=== PATIENT | female | born 1950 | race Caucasian/White ===

== ENCOUNTER 2022-02-15 10:29 | Outpatient (REF) | payer BC, SELFPAY ==
--- NOTE | ~2022-02-15 | MM_ITS ---
EXAMINATION: MM SCREENING DIGITAL BREAST TOMOSYNTHESIS, BILATERAL CLINICAL INFORMATION: Screening. Asymptomatic. The lifetime risk of breast cancer based on the Tyrer-Cuzick Model is 7%. COMPARISON: Mammography: 07/13/2020, 06/18/2018, 11/21/2017, 11/14/2017 TECHNIQUE: Digital breast tomosynthesis is performed in both the craniocaudal and mediolateral oblique views along with computer-aided detection (CAD). Synthesized 2D images are generated from the tomosynthesis. FINDINGS: There are scattered areas of fibroglandular density (ACR BI-RADS breast composition Category b). There are no significant masses, abnormal calcifications, or other abnormalities. Parenchymal pattern is similar to prior studies. No significant changes. MM/MM tomosynthesis screening BI IMPRESSION: No mammographic evidence of malignancy. ASSESSMENT: BI-RADS 1: Negative RECOMMENDATION: Routine annual mammography screening. This patient's information was entered into a reminder system with a target due date for their next mammogram.
== END 2022-02-15 10:30 | disposition home or self-care (01) ==
LOC: HO.MAMMO 10:29
PROVIDERS: PCP Internal Medicine; Visit Provider Internal Medicine
DX: Z12.31 Encounter for screening mammogram for malignant neoplasm of breast (principal)
CPT/HCPCS: 77063; 77067

== ENCOUNTER 2022-05-31 08:30 | Day surgery (SDC) | payer BC, SELFPAY ==
--- NOTE | 2022-05-30 09:15 | P.CONAN_ITS ---
Documented by User: Ness Nassar NP 05/30/22 09:16 HPI - Anesthesia Eval Consult details Narrative: 71yo F for Upper Endoscopy and Colonoscopy [facility] Past Medical History Medical History (Updated 05/31/22 @ 06:59 by Genevieve Sifuentes RN) Barretts esophagus Essential hypertension Hypothyroid Patent foramen ovale with right to left shunt Surgical History Surgical History (Updated 05/27/22 @ 09:19 by Kiana Jenkins RN) History of esophagogastroduodenoscopy History of tubal ligation Hx of colonoscopy Hx of thyroidectomy Hx of tonsillectomy Social History Social History Patient Tobacco Use Status: Former Tobacco user Quit Date: deades ago Use of substances other than those prescribed or required for medical reasons: No Are you DNR?: No Advance Directives: No Advance Directives Information Provided: Yes Meds Allergies Allergy/AdvReac Type Severity Reaction Status Date / Time dexamethasone Allergy Unknown made me Unverified 10/20/17 00:00 crazy simvastatin Allergy Unknown lip Verified 10/20/17 00:00 swelling stein Allergy Unknown Unknown Uncoded 05/27/22 09:13 mold Allergy Unknown Unknown Uncoded 05/27/22 09:13 perfumes Allergy Unknown Unknown Uncoded 05/27/22 09:13 codeine AdvReac Unknown N/V Uncoded 10/20/17 00:00 Home Medications Medication Instructions Recorded Confirmed Last Taken Type aspirin 81 mg tablet,delayed 1 tab PO DAILY 05/27/22 05/27/22 05/24/22 History release levothyroxine 88 mcg tablet 1 tab PO DAILY 05/27/22 05/27/22 05/30/22 History lisinopril 5 mg tablet 1 tab PO DAILY 05/27/22 05/27/22 05/24/22 History montelukast 10 mg tablet 1 tab PO DAILY 05/27/22 05/27/22 05/30/22 History omeprazole 20 mg capsule,delayed 1 cap PO DAILY 05/27/22 05/27/22 05/30/22 History release Exam Exam Date and Time: May 30, [id number] Assessment and Plan Assessment Anesthesia Assessment: Chart Reviewed Documented by User: Bartolo Rubio MD 05/31/22 09:43 HPI - Anesthesia Eval Consult details Narrative: 71yo F for Upper Endoscopy and Colonoscopy functinal staus greater than more than 4 mets Had an episode of TIA , ECHO showed PFO with right to left shunt . No intervention offered by cardiology at that time . No more symptoms or episodes ever since . [facility] Past Medical History Medical History (Updated 05/31/22 @ 06:59 by Genevieve Sifuentes, KAREN) Barretts esophagus Essential hypertension Hypothyroid Patent foramen ovale with right to left shunt Family History Family history of problems with anesthesia: No Surgical History Surgical History (Updated 05/27/22 @ 09:19 by Kiana Jenkins RN) History of esophagogastroduodenoscopy History of tubal ligation Hx of colonoscopy Hx of thyroidectomy Hx of tonsillectomy History of Problems with Anesthesia: No Social History Social History Patient Tobacco Use Status: Former Tobacco user Quit Date: deades ago Use of substances other than those prescribed or required for medical reasons: No Are you DNR?: No Advance Directives: No Advance Directives Information Provided: Yes Meds Allergies Allergy/AdvReac Type Severity Reaction Status Date / Time dexamethasone Allergy Unknown made me Unverified 10/20/17 00:00 crazy simvastatin Allergy Unknown lip Verified 10/20/17 00:00 swelling stein Allergy Unknown Unknown Uncoded 05/27/22 09:13 mold Allergy Unknown Unknown Uncoded 05/27/22 09:13 perfumes Allergy Unknown Unknown Uncoded 05/27/22 09:13 codeine AdvReac Unknown N/V Uncoded 10/20/17 00:00 Home Medications Medication Instructions Recorded Confirmed Last Taken Type aspirin 81 mg tablet,delayed 1 tab PO DAILY 05/27/22 05/27/22 05/24/22 History release levothyroxine 88 mcg tablet 1 tab PO DAILY 05/27/22 05/27/22 05/30/22 History lisinopril 5 mg tablet 1 tab PO DAILY 05/27/22 05/27/22 05/24/22 History montelukast 10 mg tablet 1 tab PO DAILY 05/27/22 05/27/22 05/30/22 History omeprazole 20 mg capsule,delayed 1 cap PO DAILY 05/27/22 05/27/22 05/30/22 History release Exam Airway Mallampati Class: III TM Dist: >3cm Neck ROM: Full Loose/Missing/Broken Teeth: Yes Heart: S1,S2 Lungs: b/l breath sounds Assessment and Plan Assessment Anesthesia Assessment: Anesthesia Plan Discussed Final Anesthetic Review Family History of Problems with Anesthesia: No History of Problems with Anesthesia: No NPO: Yes ASA Class: III Final Preanesthetic Review: Meds/Allgs Chart Reviewed, Consent Obtained/Reviewed and Anes Risks/Benef Reviewed Patient Risk: High Procedure Risk: Intermediate Anesthetic Plan Anesthetic Plan: MAC: Disposition: Standard PACU
[2022-05-31 08:48] VITALS: BP 122/87; PULSE 74; RESP 18; TEMP 36.4; O2SAT 97; BMI 29.7
[2022-05-31] MEDS: Lactated Ringers 1,000 ML 100 ML IVCONT (09:26)
--- NOTE | 2022-05-31 09:27 | MHC.SHP ---
Pre-Procedural Eval Section A Date of Service: 05/31/22 Section B Chief Complaint: Munson's esophagus without dysplasia,screening Details of Present Illness: see H&P no changes Relevant Family History (Specify if Yes): No Relevant Social History: None Present Medications: see Short Stay Collaborative assessment Medical History: No relevant PMH Allergies: Allergies Allergy/AdvReac Type Severity Reaction Status Date / Time dexamethasone Allergy Unknown made me Unverified 10/20/17 00:00 crazy simvastatin Allergy Unknown lip Verified 10/20/17 00:00 swelling stein Allergy Unknown Unknown Uncoded 05/27/22 09:13 mold Allergy Unknown Unknown Uncoded 05/27/22 09:13 perfumes Allergy Unknown Unknown Uncoded 05/27/22 09:13 codeine AdvReac Unknown N/V Uncoded 10/20/17 00:00 Review of Systems Sugical H&P ROS: Negative: Constitution, Cardiovascular, Respiratory, Neurological, Psychiatric, Hem-Onc, Allergic/Immunologic, Gastrointestinal, Genitourinary, Musculoskeletal, Integumentary, Endocrine and Eyes/Ears/Nose/Throat Exam Surgical H&P Exam: Normal: HEENT, Normal: Heart, Normal: Lungs, Normal: Extremities, Normal: Abdomen, Normal: Skin and Normal: Neurological Plan I have reviewed the history and physical and performed a pertinent physical examination on my patient. No changes have occurred unless specified.
--- NOTE | 2022-05-31 10:12 | PM.OP ---
Brief Operative Note Date of Service: 05/31/22 Pre-op diagnosis: barretts screening Post-op diagnosis: same Surgeon: Willy Forbes Anesthesia: MAC Was an Lead Clinical Research Coordinator used for this Procedure?: No Estimated blood loss (mL): 2 Pathology: other Condition: stable Disposition: PACU
[2022-05-31 10:15] VITALS: BP 105/59; PULSE 66; RESP 18; TEMP 36.4; O2SAT 100
[2022-05-31 10:30] VITALS: BP 95/62; PULSE 72; RESP 18; TEMP 36.4; O2SAT 96
--- NOTE | 2022-05-31 20:53 | OP_ITS ---
SURGEON: Willy Forbes MD INDICATIONS: 1. Munson esophagus. 2. Colon cancer screening. PREOPERATIVE DIAGNOSIS: POSTOPERATIVE DIAGNOSIS: PROCEDURE PERFORMED: Upper endoscopy with biopsy, colonoscopy to the terminal ileum with biopsy. ESTIMATED BLOOD LOSS: COMPLICATIONS: ANESTHESIA: ASSISTANTS: SPECIMENS: MEDICATIONS: Monitored anesthesia care. DESCRIPTION OF PROCEDURE: History and physical were performed. The risks and benefits of the procedure were explained to the patient. Informed consent was obtained. The patient was placed in the left lateral decubitus position. The Olympus video gastroscope was introduced into the esophagus, stomach, and duodenum. Examination was performed and the scope was removed. She tolerated the procedure well and was repositioned for colonoscopy. Digital rectal exam was performed and was found to be normal. The Olympus pediatric video colonoscope was introduced into the rectum and advanced to the cecum without difficulty. The cecum was identified by transillumination, palpation, and identification of the ileocecal valve. Examination was performed and the scope was removed. She tolerated both procedures well and was taken to recovery area in stable condition. FINDINGS: UPPER ENDOSCOPY: Esophagus: The EG junction was irregular. There was no esophagitis. Biopsies were obtained from the EG junction. Stomach: The stomach showed multiple benign-appearing gastric polyps, which had been previously biopsied. There was no ulcer or gastritis. Duodenum: The bulb and second portion were normal. COLONOSCOPY: The terminal ileum showed some mild nonspecific ileitis. This was biopsied. The quality of the prep was good. There was a single polyp measuring less than 5 mm at 20 cm was removed with biopsy forceps. Retroflexed examination showed small internal hemorrhoids. IMPRESSION: 1. Munson esophagus. 2. Colon polyp. RECOMMENDATION: Follow up the biopsy results. MD BEE Orr/BRANDIN / [id number]
== END 2022-05-31 10:58 | disposition home or self-care (01) ==
PROVIDERS: PCP Internal Medicine; Visit Provider Internal Medicine Gastroenterology
PROC: (CPT 45380; principal; 2022-05-31 10:20)
DX: Z12.11 Encounter for screening for malignant neoplasm of colon (principal); K63.5 Polyp of colon; K64.8 Other hemorrhoids; K52.89 Other specified noninfective gastroenteritis and colitis; K22.70 Barrett's esophagus without dysplasia; K31.7 Polyp of stomach and duodenum; I10 Essential (primary) hypertension; E78.00 Pure hypercholesterolemia, unspecified; Z79.899 Other long term (current) drug therapy; Z79.82 Long term (current) use of aspirin; Z88.8 Allergy status to other drugs, medicaments and biological substances; Z85.850 Personal history of malignant neoplasm of thyroid; Z87.891 Personal history of nicotine dependence
CPT/HCPCS: 45380; 43239; 88305; J2370

== ENCOUNTER 2022-08-19 13:07 | Outpatient (REF) | payer BC, SELFPAY ==
[2022-08-19 13:29] VITALS: BP 116/80; PULSE 77; RESP 16; TEMP 37.1; O2SAT 98; BMI 29.0
[2022-08-19 15:57] VITALS: BP 131/77; PULSE 70; RESP 16; O2SAT 96
== END 2022-08-19 13:08 | disposition home or self-care (01) ==
LOC: HO.MS 13:07
PROVIDERS: PCP Internal Medicine; Visit Provider Ophthalmology
PROC: (CPT 67840; principal; 2022-08-19 15:50)
DX: H02.61 Xanthelasma of right upper eyelid (principal); I10 Essential (primary) hypertension; E78.00 Pure hypercholesterolemia, unspecified; Z79.82 Long term (current) use of aspirin; Z79.899 Other long term (current) drug therapy; Z88.8 Allergy status to other drugs, medicaments and biological substances; Z85.850 Personal history of malignant neoplasm of thyroid; Z87.891 Personal history of nicotine dependence
CPT/HCPCS: 67840; 88304; 88305

== ENCOUNTER 2024-03-19 11:45 | Outpatient (REF) | payer BC, SELFPAY | END 2024-03-19 11:46 | disposition home or self-care (01) | LOC: HO.MAMMO 11:45 | PROVIDERS: PCP Internal Medicine; Visit Provider Internal Medicine | DX: Z12.31 Encounter for screening mammogram for malignant neoplasm of breast (principal) | CPT/HCPCS: 77063; 77067 ==

== ENCOUNTER → 2024-03-19 11:45 | Outpatient (BNV) | payer BC, SELFPAY | PROVIDERS: PCP Internal Medicine; Visit Provider Radiology Diagnostic Radiology | DX: Z12.31 Encounter for screening mammogram for malignant neoplasm of breast (principal) | CPT/HCPCS: 77063; 77067 ==

== ENCOUNTER 2025-05-03 14:33 | Outpatient (REF) | payer BC, SELFPAY ==
--- OUTSIDE RECORDS SUMMARY | 2025-05-03 16:52 | XMS_ITS | Patient Health Record ---
Author Organization [facility] Address [address] [place] [id number] Care Team Providers Care Media Supervisor Name Role Phone Ike Womack MD Primary Care Provider Willy Perdomo Jr Unavailable [phone] Allergies Allergen (clinical drug ingredient) Drug/Non Drug Allergy documented on EMR Reaction Allergy Type Onset Date Status Decadron Unknown Drug Allergy Active Simvastatin Unknown Drug Allergy Activ e Codeine Phosphate Unknown Drug Allergy Active sulfamethoxazole / trimethoprim Bactrim Unknown Drug Allergy Active Reason For Referral No Information Medications Medication SIG (Take, Route, Frequency, Duration) Notes Start Date End Date Status Omeprazole 20 MG TAKE ONE CAPSULE(S) DAILY BY MOUTH for 30 Active MiraLax (colon prep) 17 GM/SCOOP mixed with Gatorade or Crystal Light Orally begin at 5:00 p.m. the day before the procedure for 1 day 04/25/2022 Active Levothyroxine Sodium 88 MCG 1 tablet Ora lly Once a day Active Lisinopril 5 MG 1 tablet Orally Once a day Active Montelukast Sodium 10 MG 1 tablet in the evening Orally Once a day Active Finacea 15 % 1 application to aff ected area Externally Twice a day Active Aspirin Adult Low Dose Active Immunizations Vaccine Route Administration Date Status Comme nts Influenza Unknown 07/18/2021 Administered Problems Problem Type SNOMED Code ICD Code Onset Dates Problem Status W/U Status Risk Notes Problem 126565342 Colon cancer screening (Z12.11) Active confirmed Problem 773313588 Munson's esophagus without dysplasia (K22.70) Active confirmed Problem Gastric polyp (98232243) Gastric polyp (K31.7) Active confirmed Problem Munson esophagus (K22.70) Active confirmed Plan Of Treatment Pending Test Test Name Order Date UPPER GI ENDOSCOPY, BIOPSY 09/11/2011 Future Test Test Name Order Date UPPER GI ENDOSCOPY 05/24/2015 UPPER GI ENDOSCOPY 04/25/2022 COLONOSCOPY 04/25/2022 Insurance Providers Payer Name Payer Address Payer Phone Subscriber Number Group Number Insured Name Patient Relationship to Insured Coverage Start Date Coverage End Date [facility] [address] [place], [place] [id number] [place] DORSEY Self - patient is the insured Medical (General) History Medical History History ICD Code fundic gland polyps thyroid cancer hypertension elevated cholesterol back pain Munson's esophagus, diagnosed 2008, las t EGD in 10/01, no be detected Screening colonoscopy 2008, normal ten-y ear followup Surgical History Surgery Date(Month/Year) throidectomy tubal ligation tonsillectomy
== END 2025-05-03 14:34 | disposition home or self-care (01) ==
LOC: HO.MAMMO 14:33
PROVIDERS: PCP Internal Medicine; Visit Provider Internal Medicine
DX: Z12.31 Encounter for screening mammogram for malignant neoplasm of breast (principal)
CPT/HCPCS: 77063; 77067

== ENCOUNTER → 2025-05-03 14:45 | Outpatient (BNV) | payer BC, SELFPAY | PROVIDERS: PCP Internal Medicine; Visit Provider Internal Medicine | DX: Z12.31 Encounter for screening mammogram for malignant neoplasm of breast (principal) | CPT/HCPCS: 77063; 77067 ==